=== PATIENT | female | born 1930 | race Hispanic/Latino ===

== ENCOUNTER 2018-08-11 19:22 | Inpatient (IN) | payer MEDICARE ==
[~2018-08-11] VITALS: Ht 154.9 cm; Wt 43.1 kg
[~2018-08-11 19:22] MED LIST: ACET1TAB12 PO; ALEN70TA47 PO; ASPI-1005 PO; ATOR40TA69 PO; ATOR40TA71 PO; BIMA12.5OS OU; CYCL30DR OU; LEVO500T2 PO; METO-408 PO
[2018-08-11] MEDS ORDERED: MORPHINE SULFATE 4 MG/1ML SYG ONE (19:51)
[2018-08-11] MEDS ORDERED: ONDANSETRON HCL 4 MG/2 ML VIAL ONE (19:51)
[2018-08-11] MEDS ORDERED: SODIUM CHLORIDE 0.9% 500ML 500 ML IV ONE (19:51)
[2018-08-11 19:58] LABS: BASOPHILS % (AUTO) 0.1 % (0.0-5.0); EOSINOPHILS % (AUTO) 0.5 % (0.0-8.0); HEMATOCRIT 31.2 % (36-48); LYMPHOCYTES % (AUTO) 2.5 % (21.0-51.0); MEAN CORPUSCULAR HEMOGLOBIN 27.5 pg (27.0-33.0); MEAN CORPUSCULAR HGB CONC 30.8 g/dL (32.0-36.0); MEAN CORPUSCULAR VOLUME 89.3 fL (79-99); MONOCYTES % (AUTO) 5.6 % (3.0-13.0); NEUTROPHILS % (AUTO) 91.3 % (40.0-77.0); PLATELET COUNT (AUTO) 295 K/uL (130-400); RED BLOOD CELL COUNT(AUTO) 3.49 MIL/uL (4.00-5.50); RED CELL DISTRIBUTION WIDTH 15.3 % (11.0-15.5); WHITE BLOOD COUNT (AUTO) 19.3 K/uL (4.8-10.8)
[2018-08-11 20:06] LABS: CREATININE 0.7 mg/dL (0.5-1.5); POTASSIUM 3.9 mmol/L (3.5-5.1)
[2018-08-11 20:09] LABS: PARTIAL THROMBOPLASTIN TIME 25.7 SEC (26.3-35.5); PROTHROMBIN TIME 10.5 SEC (9.6-11.6)
[2018-08-11 20:12] LABS: ALBUMIN 2.6 g/dL (3.5-5.0); BILIRUBIN,TOTAL 0.3 mg/dL (0.2-1.0); TOTAL PROTEIN, SERUM 7.2 g/dL (6.0-8.3)
[2018-08-11 20:54] LABS: APPEARANCE,URINE CLOUDY (CLEAR); BILIRUBIN,URINE NEGATIVE (NEGATIVE); COLOR,URINE YELLOW (YELLOW); GLUCOSE, URINE (UA) NEGATIVE (NEGATIVE); KETONES,URINE NEGATIVE (NEGATIVE); LEUKOCYTE ESTERASE ,URINE SMALL (NEGATIVE); NITRATE,URINE POSITIVE (NEGATIVE); OCCULT BLOOD,URINE SMALL (NEGATIVE); PROTEIN,URINE TRACE (NEGATIVE); UROBILINOGEN,URINE 0.2 mg/dL (0.2-1.0)
[2018-08-11 21:06] LABS: BACTERIA,URINE Moderate /HPF (None Seen); SQUAMOUS EPITHELIAL CELL,UR Few /HPF (0-2)
[2018-08-11] MEDS ORDERED: ZOSYN 3.375GM+NS 50ML 50 ML IV ONE (22:47)
[2018-08-11] MEDS ORDERED: SODIUM CHLORIDE 0.9% 100 ML IV ONE (22:48)
[2018-08-11] MEDS ORDERED: KETOROLAC TROMETHAMINE 30MG/ML ONE (22:48)
[2018-08-12] VITALS (7 sets, daily range): BP systolic 79–155; BP diastolic 41–76
[2018-08-12] MEDS ORDERED: GLUCAGON 1MG KIT 1 MG ML IM PRN (00:30)
[2018-08-12] MEDS ORDERED: POTASSIUM CHLORIDE 20MEQ/100ML 100 ML IV PRN (00:30)
[2018-08-12] MEDS ORDERED: POTASSIUM CHLORIDE 10% ELIXIR 20 MEQ/15 ML UDCUP PO PRN (00:30)
[2018-08-12] MEDS ORDERED: MORPHINE SULFATE 2 MG/ML 1ML SYG IVP PRN (00:30)
[2018-08-12] MEDS ORDERED: LIDOCAINE HCL-MPF 1% 2ML VIAL IJ PRN (00:30)
[2018-08-12] MEDS ORDERED: DEXTROSE 50%-WATER 50 ML DISP.SYRIN IV PRN (00:30)
[2018-08-12] MEDS ORDERED: ONDANSETRON HCL 4 MG/2 ML VIAL IVP PRN (00:45)
[2018-08-12] MEDS ORDERED: CEFTRIAXONE SODIUM 1 GM ONE (04:53)
[2018-08-12 04:58] LABS: BASOPHILS % (AUTO) 0.4 % (0.0-5.0); EOSINOPHILS % (AUTO) 0.3 % (0.0-8.0); HEMATOCRIT 29.8 % (36-48); LYMPHOCYTES % (AUTO) 3.5 % (21.0-51.0); MEAN CORPUSCULAR HEMOGLOBIN 29.4 pg (27.0-33.0); MEAN CORPUSCULAR HGB CONC 32.8 g/dL (32.0-36.0); MEAN CORPUSCULAR VOLUME 89.6 fL (79-99); MONOCYTES % (AUTO) 5.4 % (3.0-13.0); NEUTROPHILS % (AUTO) 90.4 % (40.0-77.0); PLATELET COUNT (AUTO) 291 K/uL (130-400); RED BLOOD CELL COUNT(AUTO) 3.33 MIL/uL (4.00-5.50); RED CELL DISTRIBUTION WIDTH 15.3 % (11.0-15.5); WHITE BLOOD COUNT (AUTO) 11.4 K/uL (4.8-10.8)
[2018-08-12] MEDS: CEFTRIAXONE SODIUM 1 GM IVP SCH ×2 (04:58→23:03)
[2018-08-12] MEDS: ACETAMINOPHEN 325 MG TAB PO PRN ×2 (05:00→16:46)
[2018-08-12 05:13] LABS: ALBUMIN 2.3 g/dL (3.5-5.0); BILIRUBIN,TOTAL 0.6 mg/dL (0.2-1.0); CREATININE 0.8 mg/dL (0.5-1.5); TOTAL PROTEIN, SERUM 6.7 g/dL (6.0-8.3)
[2018-08-12] MEDS: INSULIN R PO SS1 SQ SCH ×4 (07:02→21:00)
[2018-08-12] MEDS: ASPIRIN 81MG TAB.CHEW PO SCH (08:42)
[2018-08-12] MEDS: ***HM***Metoprolol Succinate 25 MG PO SCH (08:51)
[2018-08-12] MEDS: CYCLOSPORINE OPTH OU SCH ×2 (08:51→21:00)
[2018-08-12] MEDS: SODIUM CHLORIDE 0.9% 1000ML 500 ML IV SCH (14:05)
[2018-08-12] MEDS: ATORVASTATIN CALCIUM 40 MG TABLET PO SCH (20:58)
[2018-08-12] MEDS: BIMATOPROST OU SCH (21:00)
[2018-08-13] VITALS (17 sets, daily range): BP systolic 87–169; BP diastolic 49–83
[2018-08-13] MEDS: INSULIN R PO SS1 SQ SCH ×4 (06:50→20:26)
[2018-08-13] MEDS: SODIUM CHLORIDE 0.9% 1000ML 500 ML IV SCH (08:00)
[2018-08-13] MEDS: ***HM***Metoprolol Succinate 25 MG PO SCH (08:29)
[2018-08-13] MEDS: CYCLOSPORINE OPTH OU SCH ×2 (09:00→20:48)
[2018-08-13] MEDS: ASPIRIN 81MG TAB.CHEW PO SCH (09:07)
[2018-08-13] MEDS: ACETAMINOPHEN 325 MG TAB PO PRN (09:12)
[2018-08-13] MEDS ORDERED: SODIUM CHLORIDE 0.9% 250 ML IV SCH (09:15)
[2018-08-13] MEDS: SODIUM CHLORIDE 0.9% 1000ML 1,000 ML IV SCH (12:27)
[2018-08-13] MEDS: ATORVASTATIN CALCIUM 40 MG TABLET PO SCH (20:42)
[2018-08-13] MEDS: BIMATOPROST OU SCH (20:48)
[2018-08-13] MEDS: CEFTRIAXONE SODIUM 1 GM IVP SCH (22:30)
[2018-08-14] VITALS (8 sets, daily range): BP systolic 120–157; BP diastolic 56–77
[2018-08-14 05:19] LABS: BASOPHILS % (AUTO) 0.2 % (0.0-5.0); EOSINOPHILS % (AUTO) 0.1 % (0.0-8.0); HEMATOCRIT 28.6 % (36-48); LYMPHOCYTES % (AUTO) 3.5 % (21.0-51.0); MEAN CORPUSCULAR HEMOGLOBIN 29.2 pg (27.0-33.0); MEAN CORPUSCULAR HGB CONC 33.2 g/dL (32.0-36.0); MEAN CORPUSCULAR VOLUME 87.9 fL (79-99); MONOCYTES % (AUTO) 7.1 % (3.0-13.0); NEUTROPHILS % (AUTO) 89.1 % (40.0-77.0); PLATELET COUNT (AUTO) 264 K/uL (130-400); RED BLOOD CELL COUNT(AUTO) 3.25 MIL/uL (4.00-5.50); RED CELL DISTRIBUTION WIDTH 15.2 % (11.0-15.5); WHITE BLOOD COUNT (AUTO) 12.8 K/uL (4.8-10.8)
[2018-08-14 05:28] LABS: ALBUMIN 2.2 g/dL (3.5-5.0); BILIRUBIN,TOTAL 0.6 mg/dL (0.2-1.0); CREATININE 0.7 mg/dL (0.5-1.5); POTASSIUM 3.5 mmol/L (3.5-5.1); TOTAL PROTEIN, SERUM 6.5 g/dL (6.0-8.3)
[2018-08-14] MEDS: SODIUM CHLORIDE 0.9% 1000ML 1,000 ML IV SCH ×2 (05:29→18:06)
[2018-08-14] MEDS: INSULIN R PO SS1 SQ SCH ×4 (05:45→20:35)
[2018-08-14] MEDS: CYCLOSPORINE OPTH OU SCH ×2 (08:12→19:19)
[2018-08-14] MEDS: ***HM***Metoprolol Succinate 25 MG PO SCH (08:12)
[2018-08-14] MEDS: ASPIRIN 81MG TAB.CHEW PO SCH (09:06)
[2018-08-14] MEDS: POTASSIUM CHLORIDE 20 MEQ ERTAB PO PRN (09:07)
[2018-08-14] MEDS: ACETAMINOPHEN 325 MG TAB PO PRN (10:48)
[2018-08-14] MEDS: BIMATOPROST OU SCH (19:19)
[2018-08-14] MEDS: ATORVASTATIN CALCIUM 40 MG TABLET PO SCH (19:59)
[2018-08-14] MEDS: CEFTRIAXONE SODIUM 1 GM IVP SCH (19:59)
[2018-08-15] MEDS: ACETAMINOPHEN 325 MG TAB PO PRN ×2 (00:25→09:42)
[2018-08-15 04:28] VITALS: BP 140/51
[2018-08-15 04:35] LABS: HEMATOCRIT 26.6 % (36-48); MEAN CORPUSCULAR HEMOGLOBIN 28.8 pg (27.0-33.0); MEAN CORPUSCULAR HGB CONC 32.6 g/dL (32.0-36.0); MEAN CORPUSCULAR VOLUME 88.1 fL (79-99); PLATELET COUNT (AUTO) 231 K/uL (130-400); RED BLOOD CELL COUNT(AUTO) 3.02 MIL/uL (4.00-5.50); RED CELL DISTRIBUTION WIDTH 15.4 % (11.0-15.5); WHITE BLOOD COUNT (AUTO) 7.9 K/uL (4.8-10.8)
[2018-08-15 04:45] LABS: CREATININE 0.6 mg/dL (0.5-1.5); POTASSIUM 3.4 mmol/L (3.5-5.1)
[2018-08-15] MEDS: INSULIN R PO SS1 SQ SCH ×2 (06:39→11:30)
[2018-08-15] MEDS: POTASSIUM CHLORIDE 20 MEQ ERTAB PO PRN ×2 (06:53→09:41)
[2018-08-15 07:00] VITALS: BP 149/66
[2018-08-15] MEDS: ***HM***Metoprolol Succinate 25 MG PO SCH (09:00)
[2018-08-15] MEDS: CYCLOSPORINE OPTH OU SCH (09:00)
[2018-08-15] MEDS: ASPIRIN 81MG TAB.CHEW PO SCH (09:40)
[2018-08-15] MEDS: SODIUM CHLORIDE 0.9% 1000ML 1,000 ML IV SCH (09:41)
[2018-08-15 11:14] VITALS: BP 134/65
== END 2018-08-15 15:15 | DRG 689 ==
LOC: EDH 19:22 → EDHIP 23:20 → 4BH 23:57 → 4AH 08-12 02:39 → 4BH 08-12 03:43
PROVIDERS: ADMIT Hospitalist; ATTEND Hospitalist
DX: N39.0 Urinary tract infection, site not specified (principal); G93.40 Encephalopathy, unspecified; E44.0 Moderate protein-calorie malnutrition; Z68.1 Body mass index [BMI] 19.9 or less, adult; I95.1 Orthostatic hypotension; S09.90XA Unspecified injury of head, initial encounter; S01.01XA Laceration without foreign body of scalp, initial encounter; I25.10 Atherosclerotic heart disease of native coronary artery without angina pectoris; E78.5 Hyperlipidemia, unspecified; J47.9 Bronchiectasis, uncomplicated; Z66 Do not resuscitate; E86.9 Volume depletion, unspecified; G31.9 Degenerative disease of nervous system, unspecified; I11.9 Hypertensive heart disease without heart failure; X58.XXXA Exposure to other specified factors, initial encounter; W18.30XA Fall on same level, unspecified, initial encounter; Y93.89 Activity, other specified; Y92.89 Other specified places as the place of occurrence of the external cause; Y99.8 Other external cause status; Z95.5 Presence of coronary angioplasty implant and graft; Z91.81 History of falling; Z83.3 Family history of diabetes mellitus; Z82.5 Family history of asthma and other chronic lower respiratory diseases; Z82.49 Family history of ischemic heart disease and other diseases of the circulatory system; Z82.3 Family history of stroke; Z82.0 Family history of epilepsy and other diseases of the nervous system; Z80.41 Family history of malignant neoplasm of ovary
CPT/HCPCS: 36415; 70450; 70551; 72125; 73030; 73080; 73502; 74176; 80048; 80053; 81001; 82140; 82948; 83605; 83690; 84484; 85025; 85027; 85610; 85730; 86140; 87040; 92610; 93005; 97039; A4218; J0696; J1815; J1885; J2270; J2405; J2543; J7030; J7040

== ENCOUNTER 2020-02-16 20:31 | Emergency (ER) | payer MEDICARE ==
[~2020-02-16 20:31] MED LIST changes: +ALEN70TA10 PO; -ALEN70TA47 PO
== END 2020-02-16 23:52 | disposition expired ==
LOC: EDH 20:31
DX: I46.9 Cardiac arrest, cause unspecified (principal)
CPT/HCPCS: 92950